=== PATIENT | male | born 1955 | race Caucasian/White ===

== ENCOUNTER 2023-11-10 14:00 | Day surgery (SDC) | payer MEDICARE, BC ==
[~2023-11-10] VITALS: Ht 180.3 cm; Wt 106.5 kg
[~2023-11-10 14:00] MED LIST: LR 1,000 ML IV SCH; Ondansetron 4 MG/2 ML VIAL IV PRN
[2023-11-10] MEDS ORDERED: TIROSINT S PO (14:09)
[2023-11-10] MEDS ORDERED: CRESTOR20 MG PO (14:09)
[2023-11-10] MEDS ORDERED: PRINIVIL40 MG PO (14:11)
[2023-11-10] MEDS ORDERED: ISTALOL 2.5 ML2.5 ML OD (14:12)
[2023-11-10] MEDS ORDERED: NORVASC 5MG5 MG/TAB PO (14:12)
[2023-11-10] MEDS ORDERED: MOBIC15 MG PO (14:13)
[2023-11-10] MEDS ORDERED: GRALISE300 MG PO (14:13)
[2023-11-10] MEDS ORDERED: LAMISIL250 M1 (14:14)
[2023-11-10] MEDS ORDERED: ASPIRIN E.C. 8181 MG PO (14:16)
[2023-11-10] MEDS ORDERED: PRILOTC (14:17)
[2023-11-10] MEDS ORDERED: MULTIPLE VITAMI1 CAP PO (14:18)
[2023-11-10] MEDS ORDERED: VITAMIN D31000 I1 PO (14:19)
[2023-11-10 14:24] VITALS: BP 117/91; PULSE 62; TEMP 97.2
[2023-11-10 15:00] VITALS: BP 93/65; PULSE 60
[2023-11-10 15:15] VITALS: BP 98/66; PULSE 62
[2023-11-10 15:30] VITALS: BP 102/85; PULSE 66
--- NOTE | 2023-11-10 15:35 | NUR ---
1500 PATIENT RETURNS TO [facility] [place] [facility] VIA CART. PT AWAKE AND ALERT. RESPIRATIONS UNLABORED. AMBULATED TO RECLINER CHAIR WITH 2:1 SBA. PT DENIES NAUSEA OR ABDOMINAL PAIN. HOOKED UP TO MONITOR AND VS OBTAINED. CALL LIGHT AT SIDE AND PRESENT. 1505 PATIENT TOLERATING WATER AND MUFFIN WITHOUT NAUSEA OR DIFFICULTY SWALLOWING (EGD ONLY). 1510 IN ROOM SPEAKING WITH PATIENT. 1520 D/C INSTRUCTIONS REVIEWED WITH PATIENT. PT VERBALIZED UNDERSTANDING AND A COPY OF INSTRUCTIONS PROVIDED IN D/C FOLDER. 1530 PATIENT DRESSES SELF. 1545 PATIENT DISCHARGED FROM UNIT VIA W/C TO A PERSONAL VEHICLE. PT LEFT HOSPITAL IN STABLE CONDITION.
== END 2023-11-10 15:45 | disposition home or self-care (01) ==
LOC: SDCO 14:00
DX: K31.7 Polyp of stomach and duodenum (principal); K44.9 Diaphragmatic hernia without obstruction or gangrene; Z79.82 Long term (current) use of aspirin; Z90.49 Acquired absence of other specified parts of digestive tract; Z79.899 Other long term (current) drug therapy; K59.00 Constipation, unspecified
CPT/HCPCS: J2704; J7120